=== PATIENT | female | born 1985 ===

== ENCOUNTER 2020-01-03 04:32 | Inpatient (IN) | payer OTHER ==
[2020-01-03] MEDS ORDERED: Tranexamic Acid 1,000 MG in Sodium Chloride 0.9% 100 ML IV PRN ×2 (04:43→08:52)
[2020-01-03] MEDS ORDERED: Lanolin 100% Cream 7 GM Tube TOP PRN ×2 (04:43→08:52)
[2020-01-03] MEDS ORDERED: Misoprostol 200 MCG Tab RECTAL PRN ×2 (04:43→08:52)
[2020-01-03] MEDS ORDERED: diphenhydrAMINE 50 MG/ML SDV IVPUSH PRN ×2 (04:43→08:52)
[2020-01-03] MEDS ORDERED: Methylergonovine 0.2 MG/1 ML Amp IM PRN ×2 (04:43→08:52)
[2020-01-03] MEDS ORDERED: Oxytocin 10 Units/1 ML SDV IM PRN ×2 (04:43→08:52)
[2020-01-03] MEDS ORDERED: Bisacodyl 10 MG Supp RECTAL PRN ×2 (04:43→08:52)
[2020-01-03] MEDS ORDERED: Ibuprofen 800 MG Tab PO PRN ×2 (04:43→08:52)
[2020-01-03] MEDS ORDERED: Ondansetron 4 MG/2 ML SDV IVPUSH PRN ×2 (04:43→08:52)
[2020-01-03] MEDS ORDERED: Acetaminophen/oxyCODONE 325-5 MG Tab PO PRN ×4 (04:43→08:52)
[2020-01-03] MEDS ORDERED: Ketorolac 30 MG/ML SDV IVPUSH SCH (04:45)
[2020-01-03] MEDS ORDERED: Oxytocin/Lactated Ringers 30 UNIT/500 ML BAG IV SCH (04:45)
[2020-01-03] MEDS: Lactated Ringers 1,000 ML IV SCH ×2 (05:49→07:21)
[2020-01-03] MEDS ORDERED: ceFAZolin 2 GM in Premix Bag 1 BAG IV ONE (07:00)
[2020-01-03] MEDS ORDERED: ePHEDrine 50 MG/ML SDV ONE (07:15)
[2020-01-03] MEDS ORDERED: Ondansetron 4 MG/2 ML SDV ONE (07:15)
[2020-01-03] MEDS ORDERED: Dexamethasone 4 MG/ML 5 ML MDV ONE (07:15)
[2020-01-03] MEDS ORDERED: fentaNYL 100 MCG/2 ML SDV ONE (07:16)
[2020-01-03] MEDS ORDERED: Morphine PF 10 MG/10 ML SDV ONE (07:16)
[2020-01-03] MEDS ORDERED: ceFAZolin/Dextrose,Iso-Osmotic 2 GM/50 ML Duplex Bag IV ONE (07:17)
[2020-01-03] MEDS ORDERED: Oxytocin 10 Units/1 ML SDV ONE (07:17)
[2020-01-03] MEDS ORDERED: Sodium Chloride 0.9% 20 ML ONE (07:31)
[2020-01-03] MEDS ORDERED: fentaNYL 100 MCG/2 ML SDV IVPUSH PRN (08:28)
[2020-01-03] MEDS ORDERED: Nalbuphine 10 MG/1 ML Vial IVPUSH PRN (08:28)
--- NOTE | 2020-01-03 08:28 | PCM.PREANE ---
Preanesthetic Assessment - Anesthesia/Transfusion/Family Hx Anesthesia History: Prior Anesthesia Without Reaction Other Type of Anesthesia Reaction Comment: "woke up during tonsillectomy and wisdom teeth extraction" Family History of Anesthesia Reaction: No Transfusion History: No Prior Transfusion(s) - Review of Systems General: No Symptoms Pulmonary: No Symptoms Cardiovascular: No Symptoms Gastrointestinal: No Symptoms Neurological: No Symptoms Other: Reports: None - Physical Assessment NPO Status Date: 01/02/20 Height: 5 ft 9 in Weight: 119.295 kg ASA Class: 2 Airway Class: Mallampati = 2 Dentition: Reports: Normal Dentition ROM/Head Extension: Full Lungs: Clear to Auscultation, Normal Respiratory Effort Cardiovascular: Regular Rate, Regular Rhythm - Lab Values: Laboratory Last Values WBC 12.39 K/uL (4.0-11.0) H 01/03/20 05:15 RBC 3.96 M/uL (4.30-5.90) L 01/03/20 05:15 Hgb 11.9 g/dL (12.0-16.0) L 01/03/20 05:15 Hct 36.7 % (36.0-46.0) 01/03/20 05:15 MCV 92.7 fL (80.0-98.0) 01/03/20 05:15 MCH 30.1 pg (27.0-32.0) 01/03/20 05:15 MCHC 32.4 g/dL (31.0-37.0) 01/03/20 05:15 RDW Std Deviation 43.2 fl (28.0-62.0) 01/03/20 05:15 RDW Coeff of Saima 13 % (11.0-15.0) 01/03/20 05:15 Plt Count 302 K/uL (150-400) 01/03/20 05:15 MPV 11.20 fL (7.40-12.00) 01/03/20 05:15 Nucleated RBC % 0.0 /100WBC 01/03/20 05:15 Nucleated RBCs # 0 K/uL 01/03/20 05:15 Blood Type O POSITIVE 01/03/20 05:15 Antibody Screen NEGATIVE 01/03/20 05:15 - Allergies Allergies/Adverse Reactions: Allergies Allergy/AdvReac Type Severity Reaction Status Date / Time erythromycin base Allergy Rash Verified 12/29/19 10:15 - Blood Blood Available: No - Anesthesia Plan Pre-Op Medication Ordered: None - Acknowledgements Anesthesia Type Planned: Spinal Pt an Appropriate Candidate for the Planned Anesthesia: Yes Alternatives and Risks of Anesthesia Discussed w Pt/Guardian: Yes Pt/Guardian Understands and Agrees with Anesthesia Plan: Yes PreAnesthesia Questionnaire HEENT History: Reports: Other (See Below) Other HEENT History: wears contacts/glasses, has 2 dental implants Cardiovascular History: Reports: Other (See Below) Other Cardiovascular History: HTN prior to gastric sleeve, none since 2016. Respiratory History: Reports: Sleep Apnea Other Respiratory History: sleep apnea prior to gastric sleeve, not since weight loss Gastrointestinal History: Reports: GERD, Other (See Below) Other Gastrointestinal History: patient believes she has diverticulosis. Hemorrhoids occured this . 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 Musculoskeletal History: Reports: None Neurological History: Reports: None Psychiatric History: Reports: Anxiety Endocrine/Metabolic History: Reports: Obesity/BMI 30+, Other (See Below) Other Endocrine/Metabolic History: diagnosed pre-diabetic prior to weight loss, was on a low dose of metformin, no longer an issue after weight loss. Hematologic History: Reports: None Immunologic History: Reports: None Oncologic (Cancer) History: Reports: None Dermatologic History: Reports: None - Infectious Disease History Infectious Disease History: Reports: Chicken Pox - Past Surgical History Head Surgeries/Procedures: Reports: None HEENT Surgical History: Reports: Oral Surgery, Tonsillectomy, Other (See Below) Other HEENT Surgeries/Procedures: wisdom teeth removal, approx. 2002. Tonsillectomy, approx 2001. Cardiovascular Surgical History: Reports: None Respiratory Surgical History: Reports: None GI Surgical History: Reports: Bariatric Procedure Other GI Surgeries/Procedures: gastric sleeve, 06/2017. Female Surgical History: Reports: Section Other Female Surgeries/Procedures: c/section x2 Endocrine Surgical History: Reports: None Neurological Surgical History: Reports: None Musculoskeletal Surgical History: Reports: None Oncologic Surgical History: Reports: None Dermatological Surgical History: Reports: None - SUBSTANCE USE Smoking Status *Q: Current Every Day Smoker Tobacco Use Within Last Twelve Months: Cigarettes Second Hand Smoke Exposure: Yes Recreational Drug Use History: No - HOME MEDS Home Medications: Home Meds Aspirin [Low Dose Aspirin EC] 81 mg PO DAILY 12/29/19 [History] Omeprazole 20 mg PO DAILY 12/29/19 [History] Pnv No.95/Ferrous Fum/Folic AC [ Vitamin Tablet] 1 tab PO DAILY [History] buPROPion HCL [Bupropion HCl Sr] 150 mg PO DAILY 12/29/19 [History] - CURRENT (IN HOUSE) MEDS Current Meds: Current Medications Bisacodyl (Dulcolax) 10 mg RECTAL ONETIME PRN PRN Reason: Constipation Diphenhydramine HCl (Benadryl) 25 mg IVPUSH Q6H PRN PRN Reason: Itching or Nausea Docusate Sodium (Colace) 100 mg PO BID [facility] Emollient Ointment (Lansinoh Hpa) 0 gm TOP ASDIRECTED PRN PRN Reason: Sore Nipples Lactated Ringer's (Ringers, Lactated) 1,000 mls @ 125 mls/hr IV ASDIRECTED [facility] Last Admin: 01/03/20 07:21 Dose: 999 mls/hr Oxytocin/Lactated Ringer's (Pitocin In Lr 30 Units/500 Ml) 30 unit in 500 mls @ 999 mls/hr IV TITRATE DAGOBERTO; Protocol Ibuprofen (Motrin) 800 mg PO Q8H PRN PRN Reason: mild pain or fever Ketorolac Tromethamine (Toradol) 30 mg IVPUSH Q6H [facility] Stop: 01/04/20 04:46 Methylergonovine Maleate (Methergine) 0.2 mg IM ONETIME PRN PRN Reason: Excessive Vaginal Bleeding Misoprostol (Cytotec) 1,000 mcg RECTAL ONETIME PRN PRN Reason: excessive bleeding Ondansetron HCl (Zofran) 4 mg IVPUSH Q4H PRN PRN Reason: Nausea/Vomiting Oxycodone/Acetaminophen (Percocet 325-5 Mg) 1 tab PO Q4H PRN PRN Reason: Pain (moderate 4-6) Oxycodone/Acetaminophen (Percocet 325-5 Mg) 2 tab PO Q4H PRN PRN Reason: Pain (moderate 4-6) Oxytocin (Pitocin) 10 unit IM ASDIRECTED PRN PRN Reason: Excessive Vaginal Bleeding Discontinued Medications Cefazolin Sodium/Dextrose (Ancef) Confirm Administered Dose 2 gm IV .STK-MED ONE Stop: 01/03/20 07:18 Dexamethasone (Dexamethasone) Confirm Administered Dose 20 mg .ROUTE .STK-MED ONE Stop: 01/03/20 07:16 Ephedrine Sulfate (Ephedrine Sulfate) Confirm Administered Dose 50 mg .ROUTE .STK-MED ONE Stop: 01/03/20 07:16 Fentanyl (Sublimaze) Confirm Administered Dose 100 mcg .ROUTE .STK-MED ONE Stop: 01/03/20 07:17 Cefazolin Sodium/Dextrose 2 gm (/ Premix) 50 mls @ 100 mls/hr IV ONETIME ONE Stop: 01/03/20 07:29 Sodium Chloride (Normal Saline) Confirm Administered Dose 20 mls @ as directed .ROUTE .STK-MED ONE Stop: 01/03/20 07:32 Ibuprofen (Motrin) 800 mg PO Q8H PRN PRN Reason: mild pain or fever Morphine Sulfate (Duramorph Pf) Confirm Administered Dose 10 mg .ROUTE .STK-MED ONE Stop: 01/03/20 07:17 Ondansetron HCl (Zofran) Confirm Administered Dose 4 mg .ROUTE .STK-MED ONE Stop: 01/03/20 07:16 Oxytocin (Pitocin) Confirm Administered Dose 40 unit .ROUTE .STK-MED ONE Stop: 01/03/20 07:18
[2020-01-03] MEDS ORDERED: Octyl 2-Cyanoacrylate 1 Tube ONE (08:38)
[2020-01-03] MEDS ORDERED: Lactated Ringers 1,000 ML IV SCH (09:00)
[2020-01-03] MEDS ORDERED: Docusate Sodium 100 MG Cap PO SCH (09:00)
--- NOTE | 2020-01-03 09:03 | PCM.OPNOTE ---
- General Post-Op/Procedure Note Date of Surgery/Procedure: 01/03/20 Operative Procedure(s): Repeat LTCS Findings: Twin A viable female APGARs 8, 9 weight 7 lb 3 oz Twin B viable male APGARs 7, 9 weight 6 lb Pre Op Diagnosis: 38 week IUP. Dichorionic/diamniotic twin gestation. Previous csection, desires repeat Post-Op Diagnosis: Same Anesthesia Technique: Spinal Primary Surgeon: Asia Duarte Stockbroker: Wendy Smith Pathology: Placenta Fluid Replacement, Intraop: 1,000 (in OR) EBL in mLs: 600 Complications: None known Condition: Stable Free Text/Narrative:: Dictation [id number] Intake & Output 01/02/20 01/03/20 01/03/20 22:59 06:59 14:59 Intake Total 1000 Balance 1000
--- NOTE | 2020-01-03 09:23 | PCM.POSTAN ---
POST ANESTHESIA ASSESSMENT - MENTAL STATUS Mental Status: Alert, Oriented - RESPIRATORY Respiratory Status: Respiratory Rate WNL, Airway Patent, O2 Saturation Stable - CARDIOVASCULAR CV Status: Pulse Rate WNL, Blood Pressure Stable - GASTROINTESTINAL GI Status: No Symptoms - POST OP HYDRATION Hydration Status: Adequate & Stable
[2020-01-03] MEDS: Ketorolac 30 MG/ML SDV IVPUSH SCH ×3 (10:01→20:53)
--- NOTE | 2020-01-03 10:14 | PCM.POSTAN ---
POST ANESTHESIA ASSESSMENT - MENTAL STATUS Mental Status: Alert, Oriented - RESPIRATORY Respiratory Status: Airway Patent, O2 Saturation Stable - CARDIOVASCULAR CV Status: Pulse Rate WNL, Blood Pressure Stable - GASTROINTESTINAL GI Status: No Symptoms - POST OP HYDRATION Hydration Status: Adequate & Stable
--- NOTE | 2020-01-03 12:08 | OR ---
SURGEON: Asia Duarte M.D. DATE OF PROCEDURE: 01/03/2020 PREOPERATIVE DIAGNOSES: 1. A 38-week intrauterine . 2. Dichorionic diamniotic twin gestation. 3. Previous section, desires repeat. POSTOPERATIVE DIAGNOSES: 1. A 38-week intrauterine . 2. Dichorionic diamniotic twin gestation. 3. Previous section, desires repeat. PROCEDURE: Repeat low-transverse section. ANESTHESIA: Spinal. ESTIMATED BLOOD LOSS: 600 mL. COMPLICATIONS: None known. FINDINGS: Twin A is a viable female, score of 8 at 1 minute and 9 at 5 minutes. Weight of 7 pounds 3 ounces. Twin B is a viable male, score of 7 at 1 minute, 9 at 5 minutes. Weight of 6 pounds. Delivery of intact dichorionic placenta will be sent to pathology for further analysis. DISPOSITION: The patient to PACU. Infants to nursery. PROCEDURE IN DETAIL: Alina is a 34-year-old female who presents today for scheduled repeat delivery. Risks of procedure have been discussed. Proper consent obtained. The patient taken to the operating room where she underwent spinal anesthetic, was then placed in the dorsal supine position with leftward tilt. SCDs to the lower extremities. [place] to gravity. She was prepped and draped in usual sterile fashion. Received Ancef prophylactically. Time-out was performed. Anesthesia was tested and found to be adequate. Previous Pfannenstiel scar was now excised. Subcutaneous tissue was incised down to the level of the rectus fascia which was incised in midline, lateralized on either side sharply and bluntly. The superior aspect of fascia was tented upward, dissected sharply, and bluntly away from underlying muscles. In a similar aspect, this was performed in the inferior aspect of the fascia. Rectus muscles were now in the midline sharply and bluntly. The peritoneum was entered and rectus muscle with peritoneum were now lateralized bluntly. Uterine position and position palpated. Uterovesical reflection visualized. Bladder flap was created sharply and bluntly. Self-retaining retractor now gently placed. A low-transverse hysterotomy was now performed. Uterine cavity was entered with the blunt end of the scalpel. Hysterotomy was lateralized bluntly. Amniotomy was performed, clear fluid returned. The head of twin A was now secured and delivered from the pelvis. Fundal pressure was applied. The head was delivered followed by anterior shoulder, posterior shoulder, and remainder of the body without difficulty. The infant's oropharynx and nares were bulb suctioned. Cord was clamped x2 and cut. Infant was handed off to attending nursing staff diamond grader. Twin B's head was now delivered to the midline. Amniotomy was performed. Clear fluid was returned. The infant's head was delivered followed by anterior shoulder, posterior shoulder, and remainder of the body without difficulty. The 's oropharynx and nares were bulb suctioned. Cord was clamped x2. Infant was handed off to attending nursery staff and diamond grader. Cord arterial, cord venous, cord blood samplings were obtained for both cords. The placenta was now delivered and will be sent to pathology for further analysis. Uterine cavity was cleared of all clot and debris. Hysterotomy repaired using 0 Vicryl in continuous running locked fashion followed by a re- imbricating layer. Any areas of oozing were now cauterized along the serosa. Uterus remained firm. Posterior aspect of the uterus inspected. No defects or hematomas were found to be forming. Region was well irrigated and suction dried. Colonic gutters were cleared of all clot and debris, well irrigated and suction dried. The hysterotomy was again inspected, found to be hemostatic. Self-retaining retractor now gently removed. Bladder blade retractor now placed and hysterotomy once again inspected, found to be hemostatic. Rectus muscles were reapproximated using 0 Vicryl with inverted mattress suture technique. There was an area of omental adhesion which was cauterized and lysed and tied with a free tie and a pass. Hemostasis appeared evident. The anterior aspect of the muscle, posterior aspect of the fascia was closely inspected. Any areas of oozing were cauterized. The rectus fascia was reapproximated using 0 Vicryl in continuous running fashion beginning laterally on either side meeting in midline with 0 Vicryl. The subcutaneous tissue was now well irrigated, suction dried, and any areas of oozing were cauterized. Deep subcutaneous tissue was reapproximated using 3-0 plain in continuous running fashion. Once again copiously irrigated the incision and used cautery for any areas of oozing. Hemostasis appeared evident. Skin edges were now reapproximated using 3-0 Vicryl in subcuticular fashion followed by Dermabond and a pressure dressing. Sponge, instrument, and needle count were correct x2. The uterus remained firm. Hemostasis evident. The patient tolerated the procedure well overall, will go to PACU, to nursery. JO / SABAS /[id number]
[2020-01-03] MEDS: Simethicone 80 MG Tab.Chew PO SCH ×2 (14:04→18:09)
[2020-01-03] MEDS: Docusate Sodium 100 MG Cap PO SCH (20:53)
[2020-01-04] MEDS: Simethicone 80 MG Tab.Chew PO SCH ×5 (03:33→23:42)
[2020-01-04] MEDS: Ketorolac 30 MG/ML SDV IVPUSH SCH ×2 (03:33→09:17)
--- NOTE | 2020-01-04 09:14 | PCM48HPAN ---
Post Anesthesia Note - EVALUATION WITHIN 48HRS OF ANESTHETIC Vital Signs in Normal Range: Yes Patient Participated in Evaluation: Yes Respiratory Function Stable: Yes Airway Patent: Yes Cardiovascular Function Stable: Yes Hydration Status Stable: Yes Pain Control Satisfactory: Yes Nausea and Vomiting Control Satisfactory: Yes Mental Status Recovered: Yes Vital Signs: Last Vital Signs Temp 36.3 C 01/04/20 03:54 Pulse 67 01/04/20 03:54 Resp 18 01/04/20 07:00 BP 129/66 01/04/20 03:54 Pulse Ox 97 01/04/20 07:00
[2020-01-04] MEDS: Docusate Sodium 100 MG Cap PO SCH ×2 (09:17→20:16)
--- NOTE | 2020-01-04 12:14 | PCM.PNPP ---
- General Info Date of Service: 01/04/20 Functional Status: Reports: Pain Controlled, Tolerating Diet, Ambulating, Urinating - Review of Systems General: Reports: Fatigue. Denies: Fever, Weakness Pulmonary: Denies: Shortness of Breath Cardiovascular: Denies: Chest Pain, Palpitations, Lightheadedness Gastrointestinal: Denies: Abdominal Pain, Nausea, Vomiting Genitourinary: Denies: Flank Pain Musculoskeletal: Reports: No Symptoms Skin: Reports: No Symptoms Neurological: Reports: No Symptoms Psychiatric: Reports: No Symptoms - General Info Date of Service: 01/04/20 - Patient Data Vital Signs - Most Recent: Last Vital Signs Temp 36.3 C 01/04/20 09:35 Pulse 67 01/04/20 09:35 Resp 16 01/04/20 09:35 BP 144/73 H 01/04/20 09:35 Pulse Ox 95 01/04/20 09:35 Weight - Most Recent: 119.295 kg I&O - Last 24 Hours: Intake & Output 01/03/20 01/04/20 01/04/20 22:59 06:59 14:59 Output Total 1850 1500 350 Balance -1850 -1500 -350 Lab Results - Last 24 Hours: Laboratory Results - last 24 hr 01/04/20 Range/Units 05:49 Hgb 10.8 L (12.0-16.0) g/dL Hct 33.1 L (36.0-46.0) % Med Orders - Current: Current Medications Bisacodyl (Dulcolax) 10 mg RECTAL ONETIME PRN PRN Reason: Constipation Diphenhydramine HCl (Benadryl) 25 mg IVPUSH Q6H PRN PRN Reason: Itching or Nausea Docusate Sodium (Colace) 100 mg PO BID [facility] Last Admin: 01/04/20 09:17 Dose: 100 mg Emollient Ointment (Lansinoh Hpa) 0 gm TOP ASDIRECTED PRN PRN Reason: Sore Nipples Last Admin: 01/03/20 16:17 Dose: 1 tube Tranexamic Acid 1,000 mg/ (Sodium Chloride) 110 mls @ 660 mls/hr IV ONETIME PRN PRN Reason: Bleeding Lactated Ringer's (Ringers, Lactated) 1,000 mls @ 125 mls/hr IV ASDIRECTED [facility] Last Admin: 01/03/20 14:07 Dose: 125 mls/hr Ibuprofen (Motrin) 800 mg PO Q8H PRN PRN Reason: mild pain or fever Ibuprofen (Motrin) 800 mg PO Q8H PRN PRN Reason: mild pain or fever Methylergonovine Maleate (Methergine) 0.2 mg IM ONETIME PRN PRN Reason: Excessive Vaginal Bleeding Misoprostol (Cytotec) 1,000 mcg RECTAL ONETIME PRN PRN Reason: excessive bleeding Ondansetron HCl (Zofran) 4 mg IVPUSH Q4H PRN PRN Reason: Nausea/Vomiting Oxycodone/Acetaminophen (Percocet 325-5 Mg) 1 tab PO ONETIME PRN PRN Reason: Pain (moderate 4-6) Oxycodone/Acetaminophen (Percocet 325-5 Mg) 1 tab PO Q4H PRN PRN Reason: Pain (moderate 4-6) Oxycodone/Acetaminophen (Percocet 325-5 Mg) 2 tab PO Q4H PRN PRN Reason: Pain (moderate 4-6) Oxytocin (Pitocin) 10 unit IM ASDIRECTED PRN PRN Reason: Excessive Vaginal Bleeding Simethicone (Simethicone) 160 mg PO QID [facility] Last Admin: 01/04/20 12:08 Dose: 160 mg Discontinued Medications Bisacodyl (Dulcolax) 10 mg RECTAL ONETIME PRN PRN Reason: Constipation Cefazolin Sodium/Dextrose (Ancef) Confirm Administered Dose 2 gm IV .STK-MED ONE Stop: 01/03/20 07:18 Dexamethasone (Dexamethasone) Confirm Administered Dose 20 mg .ROUTE .STK-MED ONE Stop: 01/03/20 07:16 Diphenhydramine HCl (Benadryl) 25 mg IVPUSH Q6H PRN PRN Reason: Itching or Nausea Docusate Sodium (Colace) 100 mg PO BID [facility] Emollient Ointment (Lansinoh Hpa) 0 gm TOP ASDIRECTED PRN PRN Reason: Sore Nipples Ephedrine Sulfate (Ephedrine Sulfate) Confirm Administered Dose 50 mg .ROUTE .STK-MED ONE Stop: 01/03/20 07:16 Fentanyl (Sublimaze) Confirm Administered Dose 100 mcg .ROUTE .STK-MED ONE Stop: 01/03/20 07:17 Fentanyl (Sublimaze) 50 mcg IVPUSH Q5M PRN PRN Reason: Pain (severe 7-10) Stop: 01/04/20 08:29 Lactated Ringer's (Ringers, Lactated) 1,000 mls @ 125 mls/hr IV ASDIRECTED [facility] Last Admin: 01/03/20 07:21 Dose: 999 mls/hr Oxytocin/Lactated Ringer's (Pitocin In Lr 30 Units/500 Ml) 30 unit in 500 mls @ 999 mls/hr IV TITRATE DAGOBERTO; Protocol Cefazolin Sodium/Dextrose 2 gm (/ Premix) 50 mls @ 100 mls/hr IV ONETIME ONE Stop: 01/03/20 07:29 Last Admin: 01/03/20 08:10 Dose: Not Given Sodium Chloride (Normal Saline) Confirm Administered Dose 20 mls @ as directed .ROUTE .STK-MED ONE Stop: 01/03/20 07:32 Ibuprofen (Motrin) 800 mg PO Q8H PRN PRN Reason: mild pain or fever Ketorolac Tromethamine (Toradol) 30 mg IVPUSH Q6H [facility] Stop: 01/04/20 04:46 Ketorolac Tromethamine (Toradol) 30 mg IVPUSH Q6H [facility] Stop: 01/04/20 09:01 Last Admin: 01/04/20 09:17 Dose: 30 mg Methylergonovine Maleate (Methergine) 0.2 mg IM ONETIME PRN PRN Reason: Excessive Vaginal Bleeding Misoprostol (Cytotec) 1,000 mcg RECTAL ONETIME PRN PRN Reason: excessive bleeding Morphine Sulfate (Duramorph Pf) Confirm Administered Dose 10 mg .ROUTE .STK-MED ONE Stop: 01/03/20 07:17 Nalbuphine HCl (Nubain) 2.5 mg IVPUSH Q3H PRN PRN Reason: Pruritis Stop: 01/04/20 08:29 Last Admin: 01/03/20 10:01 Dose: 2.5 mg Octyl Cyanoacrylate (Dermabond Advance) Confirm Administered Dose 1 applic .ROUTE .STK-MED ONE Stop: 01/03/20 08:39 Last Admin: 01/03/20 13:54 Dose: Not Given Ondansetron HCl (Zofran) 4 mg IVPUSH Q4H PRN PRN Reason: Nausea/Vomiting Ondansetron HCl (Zofran) Confirm Administered Dose 4 mg .ROUTE .STK-MED ONE Stop: 01/03/20 07:16 Oxycodone/Acetaminophen (Percocet 325-5 Mg) 1 tab PO Q4H PRN PRN Reason: Pain (moderate 4-6) Oxycodone/Acetaminophen (Percocet 325-5 Mg) 2 tab PO Q4H PRN PRN Reason: Pain (moderate 4-6) Oxytocin (Pitocin) 10 unit IM ASDIRECTED PRN PRN Reason: Excessive Vaginal Bleeding Oxytocin (Pitocin) Confirm Administered Dose 40 unit .ROUTE .STK-MED ONE Stop: 01/03/20 07:18 - Interaction Support Person: - Recovery Exam Fundal Tone: Firm Fundal Level: At Umbilicus Fundal Placement: Midline Lochia Amount: Small Lochia Color: Rubra/Red Perineum Description: Intact, Minimal Bruising/Swelling Episiotomy/Laceration: None Bladder Status: Voiding Urinary Elimination: Indwelling Catheter - Exam General: Alert, Oriented Lungs: Normal Respiratory Effort Cardiovascular: Regular Rate, Regular Rhythm GI/Abdominal Exam: Normal Bowel Sounds, Soft Extremities: Pedal Edema (trace). No: Claudia's Sign Skin: Warm, Dry, Intact Wound/Incisions: Dressing Dry and Intact Neurological: No New Focal Deficit Psy/Mental Status: Alert, Normal Affect - Problem List & Annotations (1) S/P repeat low transverse SNOMED Code(s): 845967505, [id number], [id number], [id number], [id number] Code(s): Z98.891 - HISTORY OF UTERINE SCAR FROM PREVIOUS SURGERY Status: Acute Current Visit: Yes - Problem List Review Problem List Initiated/Reviewed/Updated: Yes - My Orders Last 24 Hours: My Active Orders 01/03/20 12:00 Simethicone 160 mg PO QID 01/04/20 11:00 Ibuprofen [Motrin] 800 mg PO Q8H PRN - Assessment Assessment:: POD 1 status post repeat LTCS Doing well overall, continue cares. Working with feeding twins. Supplementing with formula.
[2020-01-04] MEDS: Acetaminophen/oxyCODONE 325-5 MG Tab PO PRN (14:15)
[2020-01-04] MEDS: Ibuprofen 800 MG Tab PO PRN (20:16)
[2020-01-05] MEDS: Acetaminophen/oxyCODONE 325-5 MG Tab PO PRN ×2 (06:16→12:14)
[2020-01-05] MEDS: Simethicone 80 MG Tab.Chew PO SCH ×2 (06:16→12:13)
[2020-01-05] MEDS: Docusate Sodium 100 MG Cap PO SCH (08:36)
[2020-01-05] MEDS: Ibuprofen 800 MG Tab PO PRN (08:36)
--- NOTE | 2020-01-05 10:25 | PCM.PNPP ---
- General Info Date of Service: 01/05/20 Functional Status: Reports: Pain Controlled, Tolerating Diet, Ambulating, Urinating - Review of Systems General: Reports: Fatigue. Denies: Fever, Weakness Pulmonary: Denies: Shortness of Breath Cardiovascular: Denies: Chest Pain, Palpitations, Lightheadedness Gastrointestinal: Denies: Abdominal Pain, Nausea, Vomiting Genitourinary: Denies: Flank Pain Musculoskeletal: Reports: No Symptoms Skin: Reports: No Symptoms Neurological: Reports: No Symptoms Psychiatric: Reports: No Symptoms - General Info Date of Service: 01/05/20 - Patient Data Vital Signs - Most Recent: Last Vital Signs Temp 36.3 C 01/05/20 08:00 Pulse 58 L 01/05/20 04:00 Resp 14 01/05/20 08:00 BP 124/79 01/05/20 08:00 Pulse Ox 97 01/05/20 08:00 Weight - Most Recent: 119.295 kg Med Orders - Current: Current Medications Bisacodyl (Dulcolax) 10 mg RECTAL ONETIME PRN PRN Reason: Constipation Diphenhydramine HCl (Benadryl) 25 mg IVPUSH Q6H PRN PRN Reason: Itching or Nausea Docusate Sodium (Colace) 100 mg PO BID [facility] Last Admin: 01/05/20 08:36 Dose: 100 mg Emollient Ointment (Lansinoh Hpa) 0 gm TOP ASDIRECTED PRN PRN Reason: Sore Nipples Last Admin: 01/03/20 16:17 Dose: 1 tube Tranexamic Acid 1,000 mg/ (Sodium Chloride) 110 mls @ 660 mls/hr IV ONETIME PRN PRN Reason: Bleeding Lactated Ringer's (Ringers, Lactated) 1,000 mls @ 125 mls/hr IV ASDIRECTED [facility] Last Admin: 01/03/20 14:07 Dose: 125 mls/hr Ibuprofen (Motrin) 800 mg PO Q8H PRN PRN Reason: mild pain or fever Last Admin: 01/05/20 08:36 Dose: 800 mg Ibuprofen (Motrin) 800 mg PO Q8H PRN PRN Reason: mild pain or fever Last Admin: 01/05/20 03:44 Dose: 800 mg Methylergonovine Maleate (Methergine) 0.2 mg IM ONETIME PRN PRN Reason: Excessive Vaginal Bleeding Misoprostol (Cytotec) 1,000 mcg RECTAL ONETIME PRN PRN Reason: excessive bleeding Ondansetron HCl (Zofran) 4 mg IVPUSH Q4H PRN PRN Reason: Nausea/Vomiting Oxycodone/Acetaminophen (Percocet 325-5 Mg) 1 tab PO ONETIME PRN PRN Reason: Pain (moderate 4-6) Last Admin: 01/04/20 23:40 Dose: 1 tab Oxycodone/Acetaminophen (Percocet 325-5 Mg) 1 tab PO Q4H PRN PRN Reason: Pain (moderate 4-6) Last Admin: 01/05/20 06:16 Dose: 1 tab Oxycodone/Acetaminophen (Percocet 325-5 Mg) 2 tab PO Q4H PRN PRN Reason: Pain (moderate 4-6) Oxytocin (Pitocin) 10 unit IM ASDIRECTED PRN PRN Reason: Excessive Vaginal Bleeding Simethicone (Simethicone) 160 mg PO QID [facility] Last Admin: 01/05/20 06:16 Dose: 160 mg Discontinued Medications Bisacodyl (Dulcolax) 10 mg RECTAL ONETIME PRN PRN Reason: Constipation Cefazolin Sodium/Dextrose (Ancef) Confirm Administered Dose 2 gm IV .STK-MED ONE Stop: 01/03/20 07:18 Dexamethasone (Dexamethasone) Confirm Administered Dose 20 mg .ROUTE .STK-MED ONE Stop: 01/03/20 07:16 Diphenhydramine HCl (Benadryl) 25 mg IVPUSH Q6H PRN PRN Reason: Itching or Nausea Docusate Sodium (Colace) 100 mg PO BID [facility] Emollient Ointment (Lansinoh Hpa) 0 gm TOP ASDIRECTED PRN PRN Reason: Sore Nipples Ephedrine Sulfate (Ephedrine Sulfate) Confirm Administered Dose 50 mg .ROUTE .STK-MED ONE Stop: 01/03/20 07:16 Fentanyl (Sublimaze) Confirm Administered Dose 100 mcg .ROUTE .STK-MED ONE Stop: 01/03/20 07:17 Fentanyl (Sublimaze) 50 mcg IVPUSH Q5M PRN PRN Reason: Pain (severe 7-10) Stop: 01/04/20 08:29 Lactated Ringer's (Ringers, Lactated) 1,000 mls @ 125 mls/hr IV ASDIRECTED [facility] Last Admin: 01/03/20 07:21 Dose: 999 mls/hr Oxytocin/Lactated Ringer's (Pitocin In Lr 30 Units/500 Ml) 30 unit in 500 mls @ 999 mls/hr IV TITRATE DAGOBERTO; Protocol Cefazolin Sodium/Dextrose 2 gm (/ Premix) 50 mls @ 100 mls/hr IV ONETIME ONE Stop: 01/03/20 07:29 Last Admin: 01/03/20 08:10 Dose: Not Given Sodium Chloride (Normal Saline) Confirm Administered Dose 20 mls @ as directed .ROUTE .STK-MED ONE Stop: 01/03/20 07:32 Ibuprofen (Motrin) 800 mg PO Q8H PRN PRN Reason: mild pain or fever Ketorolac Tromethamine (Toradol) 30 mg IVPUSH Q6H [facility] Stop: 01/04/20 04:46 Ketorolac Tromethamine (Toradol) 30 mg IVPUSH Q6H [facility] Stop: 01/04/20 09:01 Last Admin: 01/04/20 09:17 Dose: 30 mg Methylergonovine Maleate (Methergine) 0.2 mg IM ONETIME PRN PRN Reason: Excessive Vaginal Bleeding Misoprostol (Cytotec) 1,000 mcg RECTAL ONETIME PRN PRN Reason: excessive bleeding Morphine Sulfate (Duramorph Pf) Confirm Administered Dose 10 mg .ROUTE .STK-MED ONE Stop: 01/03/20 07:17 Nalbuphine HCl (Nubain) 2.5 mg IVPUSH Q3H PRN PRN Reason: Pruritis Stop: 01/04/20 08:29 Last Admin: 01/03/20 10:01 Dose: 2.5 mg Octyl Cyanoacrylate (Dermabond Advance) Confirm Administered Dose 1 applic .ROUTE .STK-MED ONE Stop: 01/03/20 08:39 Last Admin: 01/03/20 13:54 Dose: Not Given Ondansetron HCl (Zofran) 4 mg IVPUSH Q4H PRN PRN Reason: Nausea/Vomiting Ondansetron HCl (Zofran) Confirm Administered Dose 4 mg .ROUTE .STK-MED ONE Stop: 01/03/20 07:16 Oxycodone/Acetaminophen (Percocet 325-5 Mg) 1 tab PO Q4H PRN PRN Reason: Pain (moderate 4-6) Oxycodone/Acetaminophen (Percocet 325-5 Mg) 2 tab PO Q4H PRN PRN Reason: Pain (moderate 4-6) Oxytocin (Pitocin) 10 unit IM ASDIRECTED PRN PRN Reason: Excessive Vaginal Bleeding Oxytocin (Pitocin) Confirm Administered Dose 40 unit .ROUTE .STK-MED ONE Stop: 01/03/20 07:18 - Interaction Support Person: - Recovery Exam Fundal Tone: Firm Fundal Level: At Umbilicus Fundal Placement: Midline Lochia Amount: Small Lochia Color: Rubra/Red Perineum Description: Intact, Minimal Bruising/Swelling Episiotomy/Laceration: None Bladder Status: Voiding Urinary Elimination: Voided - Exam General: Alert, Oriented Lungs: Normal Respiratory Effort Cardiovascular: Regular Rate, Regular Rhythm GI/Abdominal Exam: Normal Bowel Sounds, Soft Extremities: Pedal Edema (trace). No: Claudia's Sign Skin: Warm, Dry, Intact, Rash (appears to be reacting to elastic from binder-- asked her not to use this) Wound/Incisions: Healing Well, No Drainage. No: Erythema Neurological: No New Focal Deficit Psy/Mental Status: Alert, Normal Affect, Normal Mood - Problem List & Annotations (1) S/P repeat low transverse SNOMED Code(s): 629318525, [id number], 241631723, [id number], 251080205 Code(s): Z98.891 - HISTORY OF UTERINE SCAR FROM PREVIOUS SURGERY Status: Acute Current Visit: Yes - Problem List Review Problem List Initiated/Reviewed/Updated: Yes - My Orders Last 24 Hours: My Active Orders 01/04/20 11:00 Ibuprofen [Motrin] 800 mg PO Q8H PRN 01/05/20 10:21 Ready for Discharge [RC] PER UNIT ROUTINE - Assessment Assessment:: POD 2 status post repeat LTCS - Plan Plan:: Doing well overall, and supplementing with formula. Awaiting baby boy twin bilirubin. If twins are able to be discharged to home, patient feels ready to go. Discharge instructions reviewed. Follow up at [facility] 2 and 6 weeks. Infection and bleeding warnings reviewed. Discharge to home today.
== END 2020-01-05 14:10 | disposition home or self-care (01) | DRG 788 ==
LOC: MW.OB 04:32
PROVIDERS: ADMIT Obstetrics & Gynecology; ATTEND Obstetrics & Gynecology
PROC: 10D00Z1 Extraction of Products of Conception, Low, Open Approach (ICD-10-PCS; principal; 2020-01-03)
DX: O30.043 Twin pregnancy, dichorionic/diamniotic, third trimester (principal); Z37.2 Twins, both liveborn; O34.211 Maternal care for low transverse scar from previous cesarean delivery; O99.214 Obesity complicating childbirth; E66.9 Obesity, unspecified; O99.334 Smoking (tobacco) complicating childbirth; F17.210 Nicotine dependence, cigarettes, uncomplicated; O99.62 Diseases of the digestive system complicating childbirth; K21.9 Gastro-esophageal reflux disease without esophagitis; Z3A.38 38 weeks gestation of pregnancy
CPT/HCPCS: 36415; 51702; 59025; 82803; 85014; 85018; 85027; 86850; 86900; 86901; 88307; A9270-GY; J0690; J1100; J1885; J2270; J2300; J2405; J2590; J3010; J7120